=== PATIENT | male | born 1940 | race Caucasian/White ===

== ENCOUNTER 2022-01-31 23:15 | Observation (INO) | payer MEDICARE ==
[2022-02-01 00:41] VITALS: BMI 24.5
[2022-02-01] MEDS ORDERED: Acetaminophen/Codeine 30-300mg Tablet PO PRN (02:48)
[2022-02-01] MEDS ORDERED: Ondansetron ODT 4 MG TAB PO PRN (02:49)
[2022-02-01] MEDS ORDERED: Acetaminophen 325 MG TAB PO PRN (02:49)
[2022-02-01 03:19] LABS: #Lymphocytes 2.1 thou/uL (1.20-3.40); #Monocytes 1.7 thou/uL (0.11-0.59); #Neutrophils 10.4 thou/uL (1.40-6.50); %Basophils 0.2 % (0.0-1.0); %Eosinophils 0.1 % (0.0-10.0); %Lymphocytes 14.8 % (21.0-51.0); %Monocytes 11.7 % (0.0-10.0); %Neutrophils 73.1 % (42.0-75.0); Hemoglobin 11.5 g/dL (14.0-18.0); Mean Corpuscular HGB CONC 34.1 g/dL (32.0-36.0); Mean Corpuscular Hemoglobin 33.4 pg (27.0-31.0); Mean Corpuscular Volume 97.8 fL (78.0-98.0); Mean Platelet Volume 7.5 fL (7.4-10.4); Platelet Count 147 thou/uL (130-400); RBC Distribution Width 12.7 % (11.5-14.5); Red Blood Cell (RBC) Count 3.44 mill/uL (4.70-6.10); White Blood Cell (WBC) Count 14.3 thou/uL (4.8-10.8)
[2022-02-01 03:36] LABS: Bilirubin Negative (Negative); Blood, Urine 1+ (Negative); Clarity Turbid (Clear); Glucose, Urine (Dipstick) Normal (Negative); Ketone, Urine Negative (Negative); Leukocyte 500 Leu/uL (Negative); Nitrite Negative (Negative); Protein, Urine (Dipstick) Negative (Neg-Trace); Specific Gravity, Urine 1.005 (1.002-1.036); Squamous Epithelial None Seen HPF (0-3); Urobilinogen Normal mg/dL (Less than 2); WBC/HPF Greater than 50 HPF (0-3)
[2022-02-01 03:37] LABS: Bacteria/HPF 1+ HPF (None Seen)
[2022-02-01 03:40] LABS: Urine Culture Reflex Yes Yes
[2022-02-01 03:41] LABS: ALT (SGPT) 7 U/L (8-55); AST (SGOT) 17 U/L (5-34); Albumin 3.2 g/dL (3.4-4.8); Alkaline Phosphatase 52 U/L (40-110); Anion Gap 12 mmol/L (10-20); BUN (Urea Nitrogen) 27 mg/dL (8.4-25.7); Bilirubin, Total 0.4 mg/dL (0.2-1.2); Calc. Creatinine Clearance 53 mL/min (70-130); Calcium 8.4 mg/dL (7.8-10.44); Carbon Dioxide 21 mmol/L (23-31); Chloride 110 mmol/L (98-107); Globulin 2.5 g/dL (2.4-3.5); Glucose 102 mg/dL (83-110); Potassium 4.1 mmol/L (3.5-5.1); Protein, Total 5.7 g/dL (5.8-8.1); Sodium 139 mmol/L (136-145)
[2022-02-01] MEDS: Levothyroxine Sodium 75 MCG TAB PO SCH (05:38)
[2022-02-01] MEDS ORDERED: cefTRIAXone\\ROCEPHIN 1 GM in Sodium Chloride 0.9% 100 ML IVPB SCH (09:00)
[2022-02-01] MEDS ORDERED: Tamsulosin HCl 0.4 MG CAP PO SCH (21:00)
[2022-02-02] MEDS: Levothyroxine Sodium 75 MCG TAB PO SCH (05:30)
[2022-02-02 05:46] VITALS: TEMP 97.4
[2022-02-02 07:04] LABS: #Eosinphils 0.1 thou/uL (0.0-0.7); #Lymphocytes 1.9 thou/uL (1.20-3.40); #Monocytes 0.7 thou/uL (0.11-0.59); #Neutrophils 4.9 thou/uL (1.40-6.50); %Basophils 0.2 % (0.0-1.0); %Lymphocytes 25.1 % (21.0-51.0); %Monocytes 8.8 % (0.0-10.0); %Neutrophils 64.9 % (42.0-75.0); Hemoglobin 11.2 g/dL (14.0-18.0); Mean Corpuscular Hemoglobin 31.8 pg (27.0-31.0); Mean Corpuscular Volume 99.3 fL (78.0-98.0); Platelet Count 149 thou/uL (130-400); RBC Distribution Width 12.7 % (11.5-14.5); Red Blood Cell (RBC) Count 3.51 mill/uL (4.70-6.10); White Blood Cell (WBC) Count 7.5 thou/uL (4.8-10.8)
[2022-02-02 07:27] LABS: ALT (SGPT) 9 U/L (8-55); AST (SGOT) 16 U/L (5-34); Albumin 3.2 g/dL (3.4-4.8); Alkaline Phosphatase 54 U/L (40-110); Anion Gap 12 mmol/L (10-20); BUN (Urea Nitrogen) 22 mg/dL (8.4-25.7); Bilirubin, Total 0.5 mg/dL (0.2-1.2); Calc. Creatinine Clearance 50 mL/min (70-130); Calcium 8.8 mg/dL (7.8-10.44); Carbon Dioxide 24 mmol/L (23-31); Chloride 108 mmol/L (98-107); Globulin 2.5 g/dL (2.4-3.5); Glucose 84 mg/dL (83-110); Protein, Total 5.7 g/dL (5.8-8.1); Sodium 140 mmol/L (136-145)
[2022-02-02 08:35] VITALS: BP 115/72
== END 2022-02-02 13:21 | disposition home or self-care (01) ==
LOC: T4-A 02-01 00:13
PROVIDERS: ADMIT Internal Medicine; ATTEND Internal Medicine
DX: T83.511A Infection and inflammatory reaction due to indwelling urethral catheter, initial encounter (principal); N30.90 Cystitis, unspecified without hematuria; N40.1 Benign prostatic hyperplasia with lower urinary tract symptoms; N13.8 Other obstructive and reflux uropathy; N18.30 Chronic kidney disease, stage 3 unspecified; R53.1 Weakness; I10 Essential (primary) hypertension; E03.9 Hypothyroidism, unspecified; Z79.890 Hormone replacement therapy; Z79.899 Other long term (current) drug therapy; Z20.822 Contact with and (suspected) exposure to COVID-19
CPT/HCPCS: 80053 ×2; 81001; 85025 ×2; 87040; 87086; 96365; 96366; 97116; 97139 ×2; G0378 ×2; U0003; U0005; 36415; J1956

== ENCOUNTER 2022-02-12 12:03 | Outpatient (CLI) | payer MEDICARE ==
[2022-02-12 13:33] LABS: Hemoglobin 13.2 g/dL (13.5-17.5); Mean Corpuscular HGB CONC 32.5 g/dL (32.0-36.0); Mean Corpuscular Volume 95.3 fl (81.2-95.1); Mean Platelet Volume 10.4 fl (7.4-10.4); Platelet Count 184 10x3/uL (150-450); Red Blood Cell (RBC) Count 4.26 10x6/uL (4.32-5.72); White Blood Cell (WBC) Count 4.3 10x3/uL (3.5-10.5)
[2022-02-12 13:50] LABS: Anion Gap 17 mmol/L (10-20); BUN (Urea Nitrogen) 36 mg/dL (8.4-25.7); Calc. Creatinine Clearance 0 mL/min (70-130); Calcium 9.5 mg/dL (7.8-10.44); Carbon Dioxide 23 mmol/L (23-31); Chloride 103 mmol/L (98-107); Estimated GFR 53; Glucose 90 mg/dL (83-110); Potassium 4.3 mmol/L (3.5-5.1); Sodium 139 mmol/L (136-145)
[2022-02-12 13:57] LABS: INR-International Normal Ratio 0.9; PTT 27.2 sec (22.0-33.0); Prothrombin Time 10.3 sec (9.5-12.1)
== END 2022-02-12 12:04 | disposition home or self-care (01) ==
LOC: LABBT 12:03
PROVIDERS: ATTEND Urology
DX: Z01.818 Encounter for other preprocedural examination (principal); R33.9 Retention of urine, unspecified; N17.9 Acute kidney failure, unspecified; N13.30 Unspecified hydronephrosis; N39.44 Nocturnal enuresis; N18.32 Chronic kidney disease, stage 3b; G47.30 Sleep apnea, unspecified; G40.409 Other generalized epilepsy and epileptic syndromes, not intractable, without status epilepticus
CPT/HCPCS: 80048; 85027; 85610; 85730; 87086; 87811; 93005; 93010

== ENCOUNTER 2022-02-15 07:19 | Day surgery (SDC) | payer MEDICARE ==
[2022-02-14 11:12] VITALS: BMI 24.0
[2022-02-15] MEDS ORDERED: Levofloxacin 500 mg/D5W 100 ml Premix Bag ONE (09:05)
[2022-02-15] MEDS ORDERED: B & O ONE (09:06)
[2022-02-15] MEDS ORDERED: Ketamine 50 MG/ML (10ML VIAL) ONE (09:07)
[2022-02-15] MEDS ORDERED: Phenazopyridine HCl 100 MG TAB ONE (11:37)
== END 2022-02-15 12:17 | disposition home or self-care (01) ==
LOC: SDC 07:19
PROVIDERS: ATTEND Urology
PROC: 0T7D8DZ Dilation of Urethra with Intraluminal Device, Via Natural or Artificial Opening Endoscopic (ICD-10-PCS; principal; 2022-02-15)
DX: N40.1 Benign prostatic hyperplasia with lower urinary tract symptoms (principal); N13.8 Other obstructive and reflux uropathy; R33.8 Other retention of urine; I10 Essential (primary) hypertension; E03.9 Hypothyroidism, unspecified; E78.00 Pure hypercholesterolemia, unspecified; Z79.890 Hormone replacement therapy; Z79.899 Other long term (current) drug therapy
CPT/HCPCS: C9740; L8699; J1956

== ENCOUNTER 2022-05-19 22:59 | Inpatient (IN) | payer MEDICARE ==
[2022-05-20 00:18] VITALS: BMI 26.3
[2022-05-20] MEDS ORDERED: Ondansetron ODT 4 MG TAB PO PRN (03:39)
[2022-05-20] MEDS ORDERED: Acetaminophen 650 MG Suppository PR PRN (03:39)
[2022-05-20] MEDS ORDERED: Acetaminophen 325 MG TAB PO PRN (03:39)
[2022-05-20] MEDS ORDERED: Ondansetron PF 4 MG/2 ML Vial IVP PRN (03:39)
[2022-05-20 04:58] LABS: #Lymphocytes 1.5 thou/uL (1.20-3.40); #Monocytes 1.4 thou/uL (0.11-0.59); #Neutrophils 7.2 thou/uL (1.40-6.50); %Basophils 0.1 % (0.0-1.0); %Eosinophils 0.2 % (0.0-10.0); %Monocytes 13.7 % (0.0-10.0); %Neutrophils 70.9 % (42.0-75.0); Hemoglobin 13.1 g/dL (14.0-18.0); Mean Corpuscular HGB CONC 33.1 g/dL (32.0-36.0); Mean Corpuscular Hemoglobin 31.4 pg (27.0-31.0); Mean Corpuscular Volume 94.9 fL (78.0-98.0); Mean Platelet Volume 7.9 fL (7.4-10.4); Platelet Count 147 thou/uL (130-400); RBC Distribution Width 12.5 % (11.5-14.5); Red Blood Cell (RBC) Count 4.18 mill/uL (4.70-6.10); White Blood Cell (WBC) Count 10.1 thou/uL (4.8-10.8)
[2022-05-20 05:25] LABS: Anion Gap 11 mmol/L (10-20); BUN (Urea Nitrogen) 27 mg/dL (8.4-25.7); Calc. Creatinine Clearance 42 mL/min (70-130); Calcium 9.1 mg/dL (7.8-10.44); Carbon Dioxide 24 mmol/L (23-31); Chloride 108 mmol/L (98-107); Estimated GFR 39; Glucose 109 mg/dL (83-110); Potassium 4.2 mmol/L (3.5-5.1); Sodium 139 mmol/L (136-145)
[2022-05-20] MEDS: Sodium Chloride 0.9% 1,000 ML IV SCH ×2 (05:37→13:21)
[2022-05-20] MEDS: Enoxaparin Sodium 40 MG/0.4 ML SYRINGE SC SCH (08:31)
[2022-05-20] MEDS ORDERED: FLU VACC QS2022-23(65YR UP)/PF 240 MCG/0.7 ML SYRINGE IM ONE (09:00)
[2022-05-20] MEDS: cefTRIAXone\\ROCEPHIN 1 GM in Sodium Chloride 0.9% 100 ML IVPB SCH (20:13)
[2022-05-20] MEDS: Polyethylene Glycol 3350 17 GM Packet PO PRN (20:22)
[2022-05-21] MEDS: Levothyroxine Sodium 75 MCG TAB PO SCH (06:00)
[2022-05-21 06:42] LABS: #Lymphocytes 1.3 thou/uL (1.20-3.40); #Neutrophils 5.7 thou/uL (1.40-6.50); %Basophils 0.2 % (0.0-1.0); %Eosinophils 0.5 % (0.0-10.0); %Lymphocytes 16.4 % (21.0-51.0); %Neutrophils 70.9 % (42.0-75.0); Hemoglobin 13.1 g/dL (14.0-18.0); Mean Corpuscular HGB CONC 32.8 g/dL (32.0-36.0); Mean Corpuscular Hemoglobin 31.1 pg (27.0-31.0); Mean Corpuscular Volume 94.6 fL (78.0-98.0); Mean Platelet Volume 7.5 fL (7.4-10.4); Platelet Count 140 thou/uL (130-400); RBC Distribution Width 12.3 % (11.5-14.5); Red Blood Cell (RBC) Count 4.23 mill/uL (4.70-6.10); White Blood Cell (WBC) Count 8.1 thou/uL (4.8-10.8)
[2022-05-21 06:57] LABS: Anion Gap 13 mmol/L (10-20); BUN (Urea Nitrogen) 19 mg/dL (8.4-25.7); Calc. Creatinine Clearance 47 mL/min (70-130); Calcium 9.1 mg/dL (7.8-10.44); Carbon Dioxide 23 mmol/L (23-31); Chloride 107 mmol/L (98-107); Estimated GFR 46; Glucose 94 mg/dL (83-110); Potassium 4.2 mmol/L (3.5-5.1); Sodium 139 mmol/L (136-145)
[2022-05-21] MEDS: Tamsulosin HCl 0.4 MG CAP PO SCH (09:35)
[2022-05-21] MEDS: Enoxaparin Sodium 40 MG/0.4 ML SYRINGE SC SCH (09:35)
[2022-05-21] MEDS: cefTRIAXone\\ROCEPHIN 1 GM in Sodium Chloride 0.9% 100 ML IVPB SCH (21:27)
[2022-05-22] MEDS: Polyethylene Glycol 3350 17 GM Packet PO PRN (01:13)
[2022-05-22] MEDS: Levothyroxine Sodium 75 MCG TAB PO SCH (06:22)
[2022-05-22 06:47] LABS: Anion Gap 13 mmol/L (10-20); BUN (Urea Nitrogen) 21 mg/dL (8.4-25.7); Calc. Creatinine Clearance 45 mL/min (70-130); Calcium 9.1 mg/dL (7.8-10.44); Carbon Dioxide 25 mmol/L (23-31); Chloride 105 mmol/L (98-107); Estimated GFR 43; Glucose 92 mg/dL (83-110); Potassium 4.2 mmol/L (3.5-5.1); Sodium 139 mmol/L (136-145)
[2022-05-22] MEDS: Tamsulosin HCl 0.4 MG CAP PO SCH (08:51)
[2022-05-22] MEDS: Enoxaparin Sodium 40 MG/0.4 ML SYRINGE SC SCH (08:51)
[2022-05-22] MEDS ORDERED: Divalproex Sodium DR 500 MG TAB PO SCH (09:00)
[2022-05-22 09:17] VITALS: BP 128/84; TEMP 97.5
== END 2022-05-22 15:03 | disposition home or self-care (01) | DRG 699 ==
LOC: T4-B 23:57 → OBSVTOIN 05-20 11:43
PROVIDERS: ADMIT Student in an Organized Health Care Education/Training Program; ATTEND Internal Medicine
DX: T83.511A Infection and inflammatory reaction due to indwelling urethral catheter, initial encounter (principal); N17.9 Acute kidney failure, unspecified; N39.0 Urinary tract infection, site not specified; N40.1 Benign prostatic hyperplasia with lower urinary tract symptoms; R33.8 Other retention of urine; N20.0 Calculus of kidney; I12.9 Hypertensive chronic kidney disease with stage 1 through stage 4 chronic kidney disease, or unspecified chronic kidney disease; S66.912A Strain of unspecified muscle, fascia and tendon at wrist and hand level, left hand, initial encounter; G40.909 Epilepsy, unspecified, not intractable, without status epilepticus; E03.9 Hypothyroidism, unspecified; N18.30 Chronic kidney disease, stage 3 unspecified; Z98.890 Other specified postprocedural states; Z79.890 Hormone replacement therapy; Z79.899 Other long term (current) drug therapy
CPT/HCPCS: 36415; 76770; 80048; 85025; J0696; J1650; J3490; J7050